=== PATIENT | male | born 1975 | race Caucasian/White ===

== ENCOUNTER → 2023-09-11 08:48 | Outpatient (CLI) | payer OTHER, SELFPAY ==
--- NOTE | 2023-09-11 | DI.MRI.S_ITS ---
PROCEDURE: MR SHOULDER LT WO CON INDICATIONS: PAIN IN LEFT SHOULDER TECHNIQUE: Noncontrast oblique coronal T2 fast spin echo with fat saturation, oblique sagittal T1 spin echo and T2 fast spin echo with fat saturation, axial T1 spin echo and T2 fast spin echo with fat saturation through the shoulder. COMPARISON: None. FINDINGS: Image quality: Excellent. Rotator cuff: In the supraspinatus, there is high-grade interstitial tear at the most anterior footprint, extending to a low-grade tear into the critical zone. There is additional partial width, near full thickness, articular sided tear at the critical zone at the junction of the supraspinatus and the infraspinatus (series 8, image 11). The teres minor tendon is intact. Mild tendinosis of the subscapularis with low-grade interstitial tear. No muscle edema or fatty atrophy. Bones and bursae: moderate degenerative changes acromioclavicular joint. Type 1 acromion. No os acromiale. Trace subacromial/subdeltoid bursitis. No acute fracture. No focal chondral defect of the glenohumeral joint. Capsule and soft tissues: The labrum is intact. No labral tear. The extra-articular biceps tendon is unremarkable. The intra-articular biceps tendon is unremarkable as well. Trace glenohumeral effusion. Trace subcoracoid bursitis. No intra-articular body. IMPRESSION: 1. Multifocal tear of the supraspinatus with near full thickness, articular sided tear at the junction of the supraspinatus and infraspinatus. 2. Low-grade tear of the subscapularis. 3. Moderate degenerative changes of the acromioclavicular joint. Dictated by: Iman Camacho M.D. on 09/11/2023 at 20:24 Approved by: Iman Camacho M.D. on 09/11/2023 at 20:31
== END ==
PROVIDERS: PCP Family Medicine; Referring Provider Family Medicine; Visit Provider Family Medicine
DX: M75.112 Incomplete rotator cuff tear or rupture of left shoulder, not specified as traumatic (principal); M75.42 Impingement syndrome of left shoulder; M25.512 Pain in left shoulder
CPT/HCPCS: 73221